=== PATIENT | female | born 1985 | race American Indian/Alaskan Native ===

== ENCOUNTER 2021-01-18 12:49 | Outpatient (REF) | payer OTHER, SELFPAY ==
--- NOTE | 2021-01-18 16:26 | MHC.AU.CER ---
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 Cerumen softening drops used. Unable to remove cerumen Other: Partially removed, could not complete. Left Ear: Unusual Findings: Narrow Canal(s), Deeply Impacted Cerumen Prior to Removal: Significant Cerumen Present, Complete Occlusion Outcome of Procedure: Encountered difficulty removing cerumen. Cerumen softening drops used. Unable to remove cerumen Other: Partially removed, could not complete. Recommendations: Patient was seen for an audiological evaluation. Otoscopy revealed completely occluding cerumen bilaterally. Tympanometry indicated non-compliant middle-ear systems (Type B), suggestive of complete occlusion. Could not complete removal due to deep, dry wax. Advised patient to use wax softening drops for the next week then return to complete wax removal and conduct a hearing evaluation. Diagnosis Code(s): Primary Diagnosis: H61.23 Impacted Cerumen, Bilateral Services Performed: Tympanometry (CPT 12546) Signature: Provider: Chidi Brower, CHESTER-A
== END 2021-01-18 12:50 | disposition home or self-care (01) ==
LOC: HO.SH 12:49
PROVIDERS: Visit Provider Internal Medicine
DX: H61.23 Impacted cerumen, bilateral (principal)
CPT/HCPCS: 92567

== ENCOUNTER 2021-02-01 13:52 | Outpatient (REF) | payer OTHER, SELFPAY ==
--- NOTE | 2021-02-01 16:45 | MHC.AU.CER ---
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 Cerumen softening drops used. Very little to no cerumen was able to be removed. Irritation/Redness Left Ear: Unusual Findings: Narrow Canal(s), Deeply Impacted Cerumen Prior to Removal: Significant Cerumen Present Outcome of Procedure: Encountered difficulty removing cerumen. Cerumen softening drops used. Very little to no cerumen was able to be removed. Irritation/Redness Summary/Recommendations: Patient was seen on 01/18/21, at which time cerumen removal couldn't be completed and it was recommended that she use earwax removal drops at home then return. She notes that she has been hearing better since using the drops. Otoscopy reveal occluding cerumen bilaterally, located deep in the canal. Unable to fully remove today. From here, recommend patient get a referral to ENT to complete cerumen removal. Recommended that she continue to use earwax removal drops in the meantime. Welcomed to return for an audiological evaluation of hearing concerns persist following cerumen removal. Diagnosis Code(s): Primary Diagnosis: H61.23 Impacted Cerumen, Bilateral Signature: Provider: Chidi Brower, CCC-A
== END 2021-02-01 13:53 | disposition home or self-care (01) ==
LOC: HO.SH 13:52
PROVIDERS: Visit Provider Internal Medicine
DX: Z13.89 Encounter for screening for other disorder (principal)

== ENCOUNTER 2021-05-26 15:54 | Outpatient (REF) | payer OTHER, SELFPAY ==
--- NOTE | ~2021-05-26 | XR_ITS ---
EXAMINATION: XR THORACIC SPINE CLINICAL INFORMATION: Pain in thoracic spine. COMPARISON: None TECHNIQUE: 2 views of the thoracic spine were obtained. FINDINGS: There is no fracture or bone destruction seen and the vertebral alignment is normal. There is no disc space narrowing. There is no abnormality of the paraspinal soft tissues. XR/XR thoracic spine 3V IMPRESSION: Unremarkable examination.
== END 2021-05-26 15:55 | disposition home or self-care (01) ==
LOC: HO.XRAY 15:54
PROVIDERS: PCP Internal Medicine; Visit Provider Nurse Practitioner Acute Care
DX: M54.6 Pain in thoracic spine (principal)
CPT/HCPCS: 72072

== ENCOUNTER 2022-07-10 13:48 | Outpatient (RCR) | payer OTHER, SELFPAY ==
--- NOTE | 2022-08-03 13:07 | MHC.OT.EP ---
[address] [phone] Occupational Therapy Plan of Care Patient Name: Gaby Lopez Date of Evaluation: 07/10/22 Diagnosis: Right wrist pain Right hand pain Pain Location: 4-8 right hand to shoulder achy Pain Score: 8 Pain Scale Used: Numeric (0 - 10) Aggravating Factors: Gripping with right hand Alleviating Factors: Night wrist splint Assessment: Pt is a 37 yo female with a recent worsening of right hand and wrist pain radiating to right lateral neck Pt presents with S+S mild CTS , D3 and 4 mild trigger finger. Pt will benefit from OT for CTS and trigger finger Frequency and Duration: The patient will be seen Short Term Goals: Pt will demo indep with HEP for ROM, nerve glides and tendon glide ex Demo awareness of ergonomics for work and home tasks with adapted techniques as needed. Pt with report decreased frequency of right hand trigger fingers with use of night trigger finger orthosis Pt will report right UE pain dec to < 5/10 with protection techniques with daily activities Assisted Goals: Indep self management for CTS and trigger finger Indep with HEP and ergonomic recommendations Dec frequency of RUE pain to occasional Dec frequency of right trigger finger to rare Treatment Plan: Therapeutic Exercise Therapeutic Activity Home Exercise Program Splinting Patient Education ADL Training Ultrasound Cold Packs Electronically Signed By: Lissa Akers OT CHT CLT Please Sign and return to therapist. Thank you once again for your referral.
--- NOTE | 2022-08-23 10:35 | MHC.OT.DC ---
[address] [phone] F: [phone] Occupational Therapy Discharge Note Patient Name: Gaby Lopez Provider: Diane Ferrell Diagnosis: Right wrist pain Right hand pain Date of Surgery: Date of Evaluation: 07/10/22 Date of Discharge: 08/23/22 Treatments to Date: 1 Cancellations to Date: 3 No Shows to Date: 2 Discharge Status: Visit Non-compliance Discharge Summary: See eval for detailsOT eval completed. See eval for details Began instruction on sx management with CP and joint protection Instructed to avoid straightening her hair and using string mop. Recommended spin mop Pt ed and practice with CP and tendon and nerve glides Printed HEP issued Fabricated a trigger finger splint for night wear. Electronically Signed By: Lissa Akers OT CHT CLT Reviewed/agree with student documentation: Therapist: Please Sign and return to therapist, thank you for your referral.
== END 2022-08-23 10:35 | disposition home or self-care (01) ==
LOC: HO.OT 13:48
PROVIDERS: PCP Internal Medicine; Visit Provider Internal Medicine
DX: M79.641 Pain in right hand (principal)
CPT/HCPCS: 97165; 97760

== ENCOUNTER 2023-05-17 14:23 | Outpatient (AMB) | payer OTHER, SELFPAY ==
[2023-05-17 14:28] VITALS: BP 132/80; BMI 26.3
--- NOTE | 2023-05-17 14:28 | A.OFFPC_ITS ---
Vital Signs 05/17/23 14:28 Height 5 ft 7 in Weight 168 lb BMI 26.3 BP 132/80 Blood Pressure Location Lt brachial Position Sitting Intake Visit Reasons: Rt sided flank pain Order Entry Specialist Required: No Accompanied by: Self / Same As Patient Allergies No Known Allergies Allergy (Verified 05/17/23 14:38) Medication List - Last Reconciled 05/17/23 by Diane Ferrell MD ibuprofen 800 mg PO Q6H PRN Tobacco use date assessed: 05/17/23 HPI HPI Comments History of Present Illness Details This is a 37-year-old that complains right chest wall pain and back pain with tenderness that started 3 days ago. The pain radiates from the front to the back and involves the shoulder now with limited right shoulder elevation and abduction. Ibuprofen mildly relieved the pain. I will add methocarbamol as a muscle relaxer for this matter. No chest pain or shortness of breath. She said that 3 days ago she lift 2 boxes of water bottles. [facility] Medical History (Updated 05/17/23 @ 16:53 by Diane Ferrell MD) Migraines Hearing loss, right Surgical History History of section History of tubal ligation Family History Father Hypertension Diabetes Heart disease Mother Hypertension Diabetes Asthma Maternal Grandfather Heart disease Maternal Aunt Cervical cancer Breast cancer Social History Housing: House Alcohol intake: current Alcohol intake frequency: holidays/special occasions only Patient Tobacco Use Status: Never used Tobacco e-Cigarette/Vaping Use: Never Used Second Hand Smoke Exposure: No service: No Current occupational status: employed Current occupational exposures/hazards: No Cognitive needs: No Hearing needs: No Vision needs: No Questionnaire Thrive Questionnaire Date Thrive assessed: 06/08/22 SONYA-7 AMB Questionnaire SONYA-7 Date SONYA - 7 assessed: 06/08/22 Source: Developed by Drs. Albin Jimenez, Milena Hunter, Justin Terry and colleagues, with an educational loida from [employer] Review of Systems Const All systems reviewed & are unremarkable except as noted in HPI and below Eyes Reports no additional complaints, Denies change in vision and Denies other visual disturbances Card Denies chest pain at rest, Denies chest pain with activity, Denies edema, Denies irregular heart rhythm, Denies claudication, Denies dyspnea, Denies dyspnea on exertion, Denies orthopnea, Denies paroxysmal nocturnal dyspnea and Denies slow heart rate Resp Denies cough, Denies dyspnea and Denies dyspnea on exertion GI Denies abdominal pain, Denies change in bowel habits, Denies excessive flatus, Denies nausea and Denies vomiting Denies urinary incontinence, Denies urinary hesitancy and Denies urinary urgency Musc Denies abnormal gait, Denies atrophy, Denies deformity and Denies limited range of motion Skin/Breast Denies bleeding lesions, Denies changing lesions and Denies rash Neuro Denies abnormal gait, Denies behavioral changes and Denies lack of coordination Psych Denies behavioral changes Physical exam (Primary Care) Vital Signs: Last Vital Signs BP 132/80 05/17/23 14:28 BMI result Body Mass Index 26.3 Tobacco/Smoking Status: Tobacco use Status Tobacco use date assessed 05/17/23 05/17/23 14:34 Patient Tobacco Use Status Never used Tobacco 05/17/23 14:34 e-Cigarette/Vaping Use Never Used 05/17/23 14:34 Thrive Assessment: Date of Thrive Assessment Date Thrive assessed 06/08/22 05/17/23 14:34 [facility] Head: Yes normal to inspection, Yes normocephalic and Yes atraumatic Ears: external ears normal Eyes General: appearance normal, both eyes and all related structures Eyelids: Yes eyelids normal Conjunctivae: conjunctivae normal Neck Neck: Yes normal visual inspection and Yes supple Resp Effort & Inspection: normal respiratory effort Auscultation: clear to auscultation bilaterally Cardio Jugular venous distension: no JVD Rate: regular rate Rhythm: regular rhythm Heart sounds: S1 normal heart sound present and S2 normal heart sound present Extrem Other: Right shoulder tenderness, right trapezius tenderness, right chest wall tenderness Assessment and Plan Assessment & Plan (1) Myalgia: Code(s): M79.10 - Myalgia, unspecified site Plan: Start methocarbamol. Continue ibuprofen as needed. Medications: New methocarbamol 750 mg PO TID 7 days 21 tabs 0RF Changed From ibuprofen 800 mg PO Q6H PRN 20 tabs 0RF pain M54.6 - Pain in thoracic spine To ibuprofen 800 mg PO Q8H 30 days PRN 90 tabs 0RF pain M54.6 - Pain in thoracic spine Coding Level of Care Code Est Pt Level 3 (25477) Diagnoses Myalgia M79.10 Time Spent (min) 19
== END 2023-05-17 14:47 | disposition home or self-care (01) ==
PROVIDERS: PCP Internal Medicine; Visit Provider Internal Medicine
DX: M79.10 Myalgia, unspecified site (principal); G43.909 Migraine, unspecified, not intractable, without status migrainosus
CPT/HCPCS: 99213

== ENCOUNTER 2023-05-19 09:34 | Emergency (ER) | payer OTHER, SELFPAY ==
--- NOTE | ~2023-05-19 | XR_ITS ---
EXAMINATION: XR RIBS, RIGHT CLINICAL INFORMATION: Right rib pain COMPARISON: Previous chest x-ray March 27 TECHNIQUE: 3 views of the right ribs were obtained. FINDINGS: Lungs are clear. No consolidation, pneumothorax, or pleural effusion. The cardiomediastinal silhouette and pulmonary vasculature are normal. Osseous structures are unremarkable. Ribs are intact. No fractures are identified. XR/XR ribs RT min 3V w CXR1V IMPRESSION: Unremarkable examination.
--- NOTE | ~2023-05-19 | CT_ITS ---
EXAMINATION: CT ANGIOGRAM OF THE CHEST WITH AND WITHOUT CONTRAST (CT PULMONARY ANGIOGRAM FOR PE) CLINICAL INFORMATION: Reason for Exam elevated d-dimer COMPARISON: None available. TECHNIQUE: Prior to contrast administration, noncontrast localization images were obtained. Subsequently, multidetector volumetric imaging was performed from the thoracic inlet to below the diaphragms following the administration of 80 mL Omnipaque 350 intravenous contrast. No contrast reaction reported Sagittal, coronal, and MIP oblique sagittal reformatted images were obtained on the CT workstation, uploaded to PACS, and reviewed. This CT examination was performed using dose optimization techniques as appropriate, variously including the following: *Automated exposure control *Adjustment of mA and/or kV according to patient size (this includes techniques or standardized protocols for targeted exams where dose is matched to indication/reason for exam; i.e. extremities or head) *Use of iterative reconstruction technique Total exam dose-length product 306 mGy-cm FINDINGS: QUALITY OF STUDY/CONTRAST BOLUS: Satisfactory. PULMONARY ARTERIES: No pulmonary emboli. THORACIC AORTA: No aneurysm. LUNG/PLEURA: Trace right pleural effusion with subjacent atelectasis. 2 mm pleural-based nodular focus along the lateral aspect of the right middle lobe (series 7, image 262). Central airways are patent. No pneumothorax. MEDIASTINUM: Heart is not enlarged. No pericardial effusion. No coronary calcification. No enlarged lymph nodes per size criteria. Visualized portions of the thyroid are unremarkable. No evidence of septal bowing or right heart strain. CHEST WALL/AXILLA: No axillary or internal mammary lymphadenopathy. OSSEOUS STRUCTURES: No acute or suspicious osseous abnormality. UPPER ABDOMEN: Slightly decreased hepatic attenuation suggesting hepatic steatosis. No reflux of contrast into the hepatic veins to suggest elevated right heart pressures. CT/CT angio chest PE protocol IMPRESSION: 1. No pulmonary emboli. 2. Trace right pleural effusion with subjacent atelectasis. 3. 2 mm pleural-based nodular focus along the lateral aspect of the right middle lobe. Follow-up as per Fleischner criteria. 4. Slightly decreased hepatic attenuation suggesting hepatic steatosis. According to the UPDATED 2017 Fleischner Society recommendations, the advised follow-up imaging for solid nodules < 6 mm is: LOW RISK PATIENT: No routine follow-up.
[2023-05-19 09:40] VITALS: BP 141/89; PULSE 75; RESP 16; TEMP 36.4; O2SAT 98; BMI 26.4
--- NOTE | 2023-05-19 10:15 | ED_ITS ---
HPI - General Adult General Chief complaint: Back Pain/Injury Stated complaint: r sided abd and back pain into shoulder Time Seen by Provider: 05/19/23 10:08 Source: patient, RN notes reviewed and old records reviewed Mode of arrival: ambulatory History of Present Illness HPI narrative: 37-year-old female with a past medical history of migraines, presenting to the ED complaining of right-sided upper back/scapular pain radiating to right anterior chest/ribs x a few days. Admits pain worse with movement and palpation, with some chest discomfort and chronic SOB. Denies recent injury/trauma or fall/heavy lifting. Has been taking ibuprofen, and saw her PCP on 05/17/2023 prescribed Methocarbamol without relief. Denies rash, nausea/vomiting, abdominal pain, recent travel, hematuria, exacerbation with food intake. Onset (ago): day(s) Related Data Previous Rx's Medication Instructions Recorded ibuprofen 800 mg tablet 800 mg PO Q8H PRN pain 30 days #90 05/17/23 tabs methocarbamol 750 mg tablet 750 mg PO TID 7 days #21 tabs 05/17/23 lidocaine 5 % topical patch 1 patch topical DAILY PRN pain #30 05/19/23 (Lidoderm) ea Allergies Allergy/AdvReac Type Severity Reaction Status Date / Time No Known Allergies Allergy Verified 05/19/23 09:43 Review of Systems 2 Review of Systems: Constitutional: No Fever, No Chills ENT/Mouth: No Ear Pain, No Nasal Congestion, No sore throat, No Rhinorrhea, No Swallowing Difficulty Cardiovascular: + Chest Pain, +chronic SOB Respiratory: No Cough, No Sputum Gastrointestinal: No Nausea, No Vomiting, No Diarrhea, No Abdominal pain Genitourinary: No Dysuria, No Urinary Frequency, No Hematuria, No Urinary Incontinence/retention, No Flank Pain Musculoskeletal: + joint pain, + Myalgias, No Joint Swelling Skin: No Skin Lesions, No rash Neuro: No Weakness, No Numbness, No Paresthesias Yes all other systems are reviewed and are negative Constitutional: Constitutional: Reports as per [facility] Past Medical History Attestation statement: The following information was validated with the patient. Source: old records reviewed Medical History Migraines Hearing loss, right Surgical History History of section History of tubal ligation Family History Family History Father Hypertension Diabetes Heart disease Mother Hypertension Diabetes Asthma Maternal Grandfather Heart disease Maternal Aunt Cervical cancer Breast cancer Social History Social History Housing: House Alcohol intake: current Alcohol intake frequency: holidays/special occasions only Patient Tobacco Use Status: Never used Tobacco e-Cigarette/Vaping Use: Never Used Second Hand Smoke Exposure: No Advance Directives: No Advance Directives Information Provided: No service: No Current occupational status: employed Current occupational exposures/hazards: No Cognitive needs: No Hearing needs: No Vision needs: No Physical Exam ED Vital Signs: Vital Signs - 24 hr 05/19/23 09:40 Temperature 97.5 F Pulse Rate 75 Respiratory Rate 16 Blood Pressure 141/89 H Pulse Oximetry 98 Oxygen Delivery Method Room Air BMI result Body Mass Index 26.4 Const General: cooperative, healthy appearing and no acute distress Orientation/consciousness: patient oriented x3 Limitations: no limitations HENMT Head: Yes normal to inspection and Yes atraumatic Ears: hearing grossly normal bilaterally General nose exam: Normal external nose present Face and sinus: Yes normal facial exam Eyes General: appearance normal, both eyes and all related structures EOM: EOMs intact bilaterally Neck Neck: Yes normal visual inspection and Yes no meningeal signs Chest Other: + right-sided posterior lateral and anterior chest wall reproducible tenderness. No erythema, rash, ecchymosis or flail chest. No crepitus Chest palpation & inspection: normal inspection of the chest, no crepitus and tenderness Resp Effort & Inspection: normal respiratory effort and no respiratory distress Auscultation: clear to auscultation bilaterally Cardio Rate: regular rate Heart sounds: S1 normal heart sound present and S2 normal heart sound present GI Inspection: Yes normal to inspection Palpation (GI): Soft to palpation, nontender, no guarding and not rigid General: Yes no CVA tenderness Back/Spine/Pelvis Other: No midline cervical/thoracic/lumbar spinous tenderness/step-off or deformity Back: no CVA tenderness Skin Rashes: no rashes Wounds: no wounds Neuro General: patient oriented x3, tone normal and no meningeal signs Cranial nerves: Yes CN's II-XII intact bilaterally Gait exam (Neuro): Normal gait present Extrem Other: Mild right shoulder tenderness. Neurovascular intact distally General: Yes normal to inspection Course Course Course Narrative: -1115--no leukocytosis. D-dimer elevated to 748 > will obtain CTA to rule out PE -UA with trace blood/RBCs, but contaminated. -labs otherwise reassuring. Troponin negative XR ribs RT min 3V w CXR1V IMPRESSION: Unremarkable examination. CT angio chest PE protocol IMPRESSION: 1. No pulmonary emboli. 2. Trace right pleural effusion with subjacent atelectasis. 3. 2 mm pleural-based nodular focus along the lateral aspect of the right middle lobe. Follow-up as per Fleischner criteria. 4. Slightly decreased hepatic attenuation suggesting hepatic steatosis. According to the UPDATED 2017 Fleischner Society recommendations, the advised follow-up imaging for solid nodules < 6 mm is: LOW RISK PATIENT: No routine follow-up. 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 Discussed worrisome signs and symptoms and strict return precautions, and when to return to the emergency department. They verbalized understanding and feel safe for discharge at this time. > patient reports symptomatic improvement after medications given in the ED Medications Administered Discontinued Medications Generic Name Dose Route Start Last Admin Trade Name Dickq PRN Reason Stop Dose Admin Cyclobenzaprine HCl 5 mg 05/19/23 10:24 05/19/23 10:50 Cyclobenzaprine Hcl 5 Mg Tablet PO 05/19/23 10:25 5 mg ONCE ONE Administration Iohexol 85 ml 05/19/23 11:31 05/19/23 11:31 Iohexol 350 Mg/Ml 100 Ml Infus..Btl IV 05/19/23 11:32 85 ml ONCE ONE Administration Lidocaine 1 patch 05/19/23 10:23 05/19/23 10:49 Lidocaine 4 % Patch Adh..Patch TRANSDERMA 05/19/23 10:24 1 patch ONCE ONE Administration Protocol Medical Decision Making Medical Decision Making [facility] Narrative: 37-year-old female with a past medical history of migraines, presenting to the ED complaining of right-sided upper back/scapular pain radiating to right anterior chest/ribs x a few days. On exam vital signs stable, NAD, nontoxic appearing, physical exam as above with noted reproducible chest wall tenderness. Abdomen is soft and nontender. Lungs CTA. Concern for costochondritis vs MSK pain/strain vs pulmonary embolism or pneumonia. ?Renal stones/pyelo although of lower suspicion. Lower suspicion for cholecystitis/lithiasis or pancreatitis with abdomen being soft and nontender. Symptoms atypical for ACS Plan: EKG, labs, CXR/rib x-ray, pain control, re-evaluate Please refer to course for remaining clinical decision making, interpretation of labs/imaging results, and discussions with consultants and/or family members. Differential Diagnosis Differential Diagnoses: The differential diagnosis associated with the presentation includes As above Admission/Observation Consideration of admission/observation: Escalation of care including admission/observation considered Lab Data MDM Lab Attestation statement: I reviewed the patient's lab results. 05/19/23 10:44 05/19/23 10:44 Labs: Lab Results 05/19/23 Range/Units 10:44 WBC 10.8 (4.8-10.8) X10*3/uL RBC 3.98 L (4.20-5.50) X10*6/uL Hgb 12.9 (12.0-16.0) g/dl Hct 37.4 (37.0-47.0) % MCV 94.0 (80.0-98.0) fL MCH 32.4 (27.0-33.0) pg MCHC 34.5 (31.0-35.0) g/dl RDW 12.1 (11.0-16.0) % Plt Count 297 (160-400) X10*3/uL MPV 9.2 L (9.4-12.3) fL Immature Gran % (Auto) 0.4 (0.0-0.4) % Neut % (Auto) 77.6 H (45-73) % Lymph % (Auto) 12.5 L (20-40) % [place] % (Auto) 8.7 (2-11) % Eos % (Auto) 0.6 (0-4) % Baso % (Auto) 0.2 (0-2) % Lymph # (Auto) 1.4 (1.2-4.9) X10*3/uL [place] # (Auto) 0.9 (0.1-1.2) X10*3/uL Eos # (Auto) 0.1 (0.0-0.4) X10*3/uL Baso # (Auto) 0.0 (0.0-0.2) X10*3/uL Abs Immat Gran (auto) 0.04 H (0.00-0.03) X10*3/uL Absolute Neuts (auto) 8.4 H (2.0-8.3) x10*3/uL Absolute Nucleated RBC 0.000 (0.0-0.012) X10*3/uL Nucleated RBC % (auto) 0.0 (0.0-0.2) /100WBC D-Dimer High Sensitivty 748 NG/ML Sodium 139 (135-145) mmol/L Potassium 3.6 (3.3-5.1) mmol/L Chloride 103 (96-108) mmol/L Carbon Dioxide 26 (22-29) mmol/L Anion Gap 14 (12-20) BUN 10 (9-16) mg/dL Creatinine 0.64 (0.5-1.4) mg/dL Estim Creat Clear Calc 125.7 Estimated GFR > 60 Random Glucose 87 (60-115) mg/dL Calcium 9.6 (8.4-10.2) mg/dL Total Bilirubin 0.5 (0.0-1.0) mg/dL Direct Bilirubin 0.3 (0.0-0.5) mg/dL AST 17 (5-31) U/L ALT 21 (0-31) U/L Alkaline Phosphatase 87 (39-117) U/L Troponin I High Sens < 2.7 (<3.5-17.0) ng/L Total Protein 8.6 H (6.5-8.0) g/dL Albumin 4.0 (3.5-5.0) g/dL Lipase 12 (8-78) U/L Beta HCG, Quant < 2 mIU/mL Urine Color Yellow Urine Appearance Cloudy Urine pH 6.0 (5.0-9.0) Ur Specific [place] 1.025 (1.005-1.025) Urine Protein Trace (Neg-Trace) mg/dL Urine Glucose (UA) Negative (Negative) mg/dL Urine Ketones Negative (Negative) mg/dL Urine Blood Trace H (Negative) Urine Nitrite Negative (Negative) Ur Leukocyte Esterase Negative (Negative) Urine RBC 3-5 H (0-2) /HPF Urine WBC 0-5 (0-5) /HPF Ur Squamous Epith Cells 11-20 (0-2) /HPF Urine Bacteria 3+ (None Seen) Hyaline Casts 0-2 (0-2) /LPF Independent Interpretation I performed an independent interpretation of an: Plain X-Ray and Ultrasound Radiology Impression Discussion of test interpretation with radiology: I have reviewed the radiologist's reading. External Record Review External record reviewed: Inpatient record, Office record, Outpatient record, Prior outpatient labs, Prior outpatient radiology, Primary care record and Outside ED record Tests considered The following testing was considered but not selected: As above Prescription Management I considered prescription management with: Pain Medication Discharge Plan Discharge Clinical Impression: Costochondritis, Pulmonary nodule Patient Disposition: Home, Self-Care Instructions: Costochondritis (ED), Pulmonary Nodules (ED) Additional Instructions: Your blood work is reassuring. The CT scan of her chest does not show a blood clot. You do have a trace amount of fluid in your right lung as well as a small nodule. Please follow-up with her primary care doctor in regards to this Continue previously prescribed medications and ibuprofen, in addition use lidocaine patches and Tylenol. If symptoms persist or worsen return to the emergency department Tu an?lisis de rick es tranquilizador. La tomograf?a computarizada de slaughter t?rax no muestra nikita?n co?gulo de rick. Tiene smiley mari?a cantidad de l?quido en el pulm?n derecho, as? stacie un mari?o n?dulo. Por favor nickie un seguimiento con slaughter m?dico de atenci?n primaria con respecto a esto. Contin?e con los medicamentos recetados previamente y con ibuprofeno, adem?s use parches de lidoca?na y Tylenol. Si los s?ntomas persisten o empeoran, regrese al departamento de emergencias. Prescriptions: New lidocaine [Lidoderm] 5 % adhesive patch,medicated 1 patch topical DAILY MDD remove after 12 hours PRN (Reason: pain) Qty: 30 0RF Rx Instructions: leave on most painful area for up to 12 hrs No Action ibuprofen 800 mg tablet 800 mg PO Q8H PRN (Reason: pain) 30 Days Qty: 90 0RF methocarbamol 750 mg tablet 750 mg PO TID 7 Days Qty: 21 0RF Referrals: Diane Bridges MD [Primary Care Provider] - 3 days Interventions: ED Discharge Assessment Last Done: 05/19/23 13:18 Discharge Date/Time: 05/19/23 13:18 Print Language: Persian
[2023-05-19] MEDS: Lidocaine 4 % Patch ADH..PATCH 1 PATCH TRANSDERMA (10:49)
[2023-05-19 10:50] LABS: MANUAL DIFF FLAG NO
[2023-05-19] MEDS: Cyclobenzaprine HCl 5 MG TABLET PO (10:50)
[2023-05-19 10:53] LABS: Appearance Urine Cloudy; Basophils Percent Auto 0.2 % (0-2); Color Urine Yellow; Eosinophils Absolute Auto 0.1 X10*3/uL (0.0-0.4); Eosinophils Percent Auto 0.6 % (0-4); Glucose Urine UA Negative (Negative); Hematocrit 37.4 % (37.0-47.0); Hemoglobin 12.9 g/dl (12.0-16.0); Imm Gran Abs Auto 0.04 X10*3/uL (0.00-0.03); Imm Gran Pct Auto 0.4 % (0.0-0.4); Leukocyte Esterase Urine Negative (Negative); Lymphocytes Absolute Auto 1.4 X10*3/uL (1.2-4.9); Lymphocytes Percent Auto 12.5 % (20-40); Mean Corpuscular HGB Conc 34.5 g/dl (31.0-35.0); Mean Corpuscular Hemoglobin 32.4 pg (27.0-33.0); Mean Platelet Volume 9.2 fL (9.4-12.3); Monocytes Absolute Auto 0.9 X10*3/uL (0.1-1.2); Monocytes Percent Auto 8.7 % (2-11); Neutrophils Absolute Auto 8.4 x10*3/uL (2.0-8.3); Neutrophils Percent Auto 77.6 % (45-73); Nitrite Urine Negative (Negative); Platelet Count 297 X10*3/uL (160-400); Red Blood Count 3.98 X10*6/uL (4.20-5.50); Red Cell Distribution Width 12.1 % (11.0-16.0); Specific Gravity - Urine 1.025 (1.005-1.025); UMIC TRIGGER UACC YES; Urine Blood Trace (Negative); Urine Ketones Negative (Negative); Urine Protein Trace mg/dL (Neg-Trace); White Blood Count 10.8 X10*3/uL (4.8-10.8)
[2023-05-19 10:58] LABS: Bacteria Urine 3+ (None Seen); Hyaline Casts Urine 0-2 /LPF (0-2); WBC Urine 0-5 /HPF (0-5)
[2023-05-19 11:00] LABS: D Dimer High Sensitivity 748 NG/ML
[2023-05-19 11:08] LABS: Alanine Aminotransferase 21 U/L (0-31); Alkaline Phosphatase 87 U/L (39-117); Anion Gap 14 (12-20); Aspartate Amino Transferase 17 U/L (5-31); Bilirubin Direct 0.3 mg/dL (0.0-0.5); Bilirubin Total 0.5 mg/dL (0.0-1.0); Blood Urea Nitrogen 10 mg/dL (9-16); Calcium 9.6 mg/dL (8.4-10.2); Carbon Dioxide 26 mmol/L (22-29); Chloride 103 mmol/L (96-108); Creatinine Clr Calc Pharmacy 125.7; Estimated Glomerular Filt Rate > 60; Glucose Random 87 mg/dL (60-115); Lipase 12 U/L (8-78); Potassium 3.6 mmol/L (3.3-5.1); Sodium 139 mmol/L (135-145); Total Protein 8.6 g/dL (6.5-8.0)
[2023-05-19 11:28] LABS: Troponin-I High Sensitivity < 2.7 ng/L (<3.5-17.0)
[2023-05-19] MEDS: iohexoL 350 MG/ML 100 ML INFUS..BTL 85 ML IV (11:31)
[2023-05-19 12:12] LABS: HCG Quantitative < 2 mIU/mL
== END 2023-05-19 13:18 | disposition home or self-care (01) ==
PROVIDERS: Physician Assistant; Emergency Provider Student in an Organized Health Care Education/Training Program; PCP Internal Medicine
DX: M94.0 Chondrocostal junction syndrome [Tietze] (principal); R91.1 Solitary pulmonary nodule; J90 Pleural effusion, not elsewhere classified; Z79.899 Other long term (current) drug therapy
CPT/HCPCS: 36415; 71101; 71275; 80048; 80076; 81001; 83690; 84484; 84702; 85025; 85379; 99283; 99284; Q9967

== ENCOUNTER 2023-05-22 11:20 | Outpatient (AMB) | payer OTHER, SELFPAY ==
[2023-05-22 11:25] VITALS: BP 126/70; PULSE 89; O2SAT 99; BMI 25.8
--- NOTE | 2023-05-22 11:25 | A.OFFVIS_ITS ---
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 The patient is a 37 year woman who is healthy apparently she was in usual state health until last week when she started developing pleuritic chest pain on the right side. Initially she felt a nagging sensation on the right hemithorax. Worsened with breathing coughing. Although she took some ibuprofen was able to feel little better and she went back to work. Then the next day she noticed the pain was a little bit worse. Therefore, she was seen by her primary care doctor and provided some care. Ultimately her symptoms worsen to the point that she could not barely breathe then because the pleuritic intensity of the pain. [place] like a sharp stabbing pain primarily in the the right lateral area but also likely radiating to the shoulder area. At that point the patient could not tolerate the symptoms and longer decided to go to the ER. There she did undergo a CTA. I did personally reviewed the CT scan the patient. She does have a small right-sided pleural effusion suggesting some component of pleurisy. But in addition to that adjacent to the pleural effusion that appears to be an area of airspace disease which could be compressive atelectasis or pneumonia. The patient also states she has been coughing more she has also had some chills and has not been feeling well. Her blood work did also demonstrate a left shift with significant immature granulocytes suggesting infectious process. At this point based on the findings likely has a small non complicated parapneumonic effusion which is very pruritic in nature. Therefore will go ahead and start the patient on antibiotics. She can take Motrin for pain. If the patient is no better she can have a repeat x-ray to make sure that the fusion is not getting worse. Lyubov hairston will repeat the x-ray need around. Also to note the patient does have a small subcentimeter pulmonary nodule. The nodules not concerning with the patient is concerned about it. She will need to have a repeat CT scan in a year's time to make sure that the nodular density does not evolve into anything. The patient was started the antibiotics if she has no better she will call the office otherwise will follow-up in 6-8 weeks. [facility] Medical History (Updated 05/22/23 @ 12:43 by Handy Johnson MD) Pneumonia Migraines Hearing loss, right Surgical History History of section History of tubal ligation Family History Father Hypertension Diabetes Heart disease Mother Hypertension Diabetes Asthma Maternal Grandfather Heart disease Maternal Aunt Cervical cancer Breast cancer Social History Housing: House Alcohol intake: current Alcohol intake frequency: holidays/special occasions only Patient Tobacco Use Status: Never used Tobacco e-Cigarette/Vaping Use: Never Used Second Hand Smoke Exposure: No service: No Current occupational status: employed Current occupational exposures/hazards: No Cognitive needs: No Hearing needs: No Vision needs: No Review of Systems Const Reports chills Eyes Reports no additional complaints, Denies change in vision and Denies other visual disturbances ENT Reports otalgia Card Reports chest pain at rest, Reports chest pain with activity, Denies edema, Denies irregular heart rhythm, Denies claudication, Denies dyspnea, Denies dyspnea on exertion, Denies orthopnea, Denies paroxysmal nocturnal dyspnea and Denies slow heart rate Resp Reports cough, Reports pain on inspiration, Reports pain with cough, Denies dyspnea, Denies dyspnea on exertion and Denies wheezing GI Denies abdominal pain, Denies change in bowel habits, Denies excessive flatus, Denies nausea and Denies vomiting Denies urinary incontinence, Denies urinary hesitancy and Denies urinary urgency Musc Denies abnormal gait, Denies atrophy, Denies deformity and Denies limited range of motion Skin/Breast Denies bleeding lesions, Denies changing lesions and Denies rash Neuro Denies abnormal gait, Denies behavioral changes and Denies lack of coordination Psych Denies behavioral changes Fredy/Lymph Denies lymphadenopathy Aller/Immun Denies wheezing Physical Exam Vital Signs: Last Vital Signs Pulse 89 05/22/23 11:25 BP 126/70 05/22/23 11:25 Pulse Ox 99 05/22/23 11:25 Oxygen Delivery Method Room Air 05/22/23 11:25 BMI result Body Mass Index 25.8 Const General: comfortable HEENT Head: Yes normocephalic Neck Neck: Yes supple Chest Chest palpation & inspection: normal inspection of the chest Resp Effort & Inspection: normal respiratory effort Auscultation: diminished lung sounds Cardio Rate: tachycardic Rhythm: regular rhythm Heart sounds: S1 normal heart sound present and S2 normal heart sound present GI Palpation (GI): Soft to palpation Skin General skin exam: no rashes or lesions noted Extrem General: Yes no clubbing, cyanosis or edema Assessment & Plan Assessment & Plan (1) Pleural effusion: Code(s): J90 - Pleural effusion, not elsewhere classified (2) Pneumonia: Code(s): J18.9 - Pneumonia, unspecified organism Qualifiers: Pneumonia type: due to unspecified organism Laterality: right Lung location: lower lobe of lung Qualified Code(s): J18.9 - Pneumonia, unspecified organism (3) Pulmonary nodule: Code(s): R91.1 - Solitary pulmonary nodule Plan The patient is presenting with chills cough and pleuritic discomfort. CT scan d emonstrating small pleural effusion with evidence of airspace disease. Please refer to the picture. Will go ahead and treat her for a lower respiratory infection. She is taking Motrin for pain. Other etiologies that may present this fashion are connective tissue conditions. Although, she does not have any other stigmata of connective tissue disease. Therefore hold off on any additional blood work. If the patient does not respond to therapy then will do blood work assessing immune status and also inflammatory conditions. Recommendations: Start Augmentin Continue ibuprofen As needed for pain Repeat chest x-ray this week if feeling like she is getting worse otherwise she can wait till next week Consider blood work if the patient is not improving or if the x-ray is not improving to assess for inflammatory conditions and to assess her immunity Follow-up in 6-8 weeks or sooner if she is developing any worsening symptoms Orders: Orders XR chest 2V Today J90 - Pleural effusion, not elsewhere classified Medications: New amoxicillin-pot clavulanate 875-125 mg 1 tab PO BID 10 days 20 tabs 0RF Coding Level of Care Code New Pt Level 4 (06580) Diagnoses Pleural effusion J90 Pneumonia of right lower lobe due to infectious organism J18.9 Pneumonia type: due to unspecified organism Laterality: right Lung location: lower lobe of lung Pulmonary nodule R91.1 Time Spent (min) 39
== END 2023-05-22 11:45 | disposition home or self-care (01) ==
PROVIDERS: PCP Internal Medicine; Visit Provider Hospitalist
DX: J90 Pleural effusion, not elsewhere classified (principal); J18.9 Pneumonia, unspecified organism; R91.1 Solitary pulmonary nodule
CPT/HCPCS: 99204

== ENCOUNTER → 2023-05-22 11:20 | Outpatient (BNVA) | payer OTHER, SELFPAY | PROVIDERS: PCP Internal Medicine; Visit Provider Hospitalist | DX: J90 Pleural effusion, not elsewhere classified (principal); J18.9 Pneumonia, unspecified organism; R91.1 Solitary pulmonary nodule | CPT/HCPCS: 99202 ==

== ENCOUNTER 2023-05-28 14:45 | Outpatient (REF) | payer OTHER, SELFPAY ==
--- NOTE | ~2023-05-28 | XR_ITS ---
EXAMINATION: XR CHEST CLINICAL INFORMATION: Pleural effusion, not elsewhere classified COMPARISON: CT angiography chest 05/19/2023, chest 03/24/2012 TECHNIQUE: 2 views of the chest were obtained. FINDINGS: There is increased opacity in the right lower lobe consistent with pneumonia. There are possibly small bilateral pleural effusions. No significant abnormality is noted involving the heart, mediastinum, bony thorax or soft tissues. XR/XR chest 2V IMPRESSION: Right lower lobe pneumonia. Possible small bilateral pleural effusions.
== END 2023-05-28 14:46 | disposition home or self-care (01) ==
LOC: HO.XRAY 14:45
PROVIDERS: PCP Internal Medicine; Visit Provider Hospitalist
DX: J90 Pleural effusion, not elsewhere classified (principal)
CPT/HCPCS: 71046

== ENCOUNTER 2023-05-30 14:57 | Outpatient (AMB) | payer OTHER, SELFPAY ==
[2023-05-30 15:07] VITALS: BP 120/80; BMI 26.3
--- NOTE | 2023-05-30 15:07 | A.OFFPC_ITS ---
Vital Signs 05/30/23 15:07 Height 5 ft 7 in Weight 168 lb BMI 26.3 BP 120/80 Blood Pressure Location Lt brachial Position Sitting Intake Visit Reasons: Ed follow up 05/19/23 fluid in lungs Intake Note: 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 Accompanied by: Self / Same As Patient Allergies No Known Allergies Allergy (Verified 05/30/23 15:27) Medication List - Last Reconciled 05/30/23 by Diane Ferrell MD amoxicillin-pot clavulanate 875-125 mg 1 tab PO BID 10 days ibuprofen 800 mg PO Q8H PRN 30 days lidocaine 5% (Lidoderm) 1 patch topical DAILY PRN MDD remove after 12 hours methocarbamol 750 mg PO TID 7 days Tobacco use date assessed: 05/17/23 HPI HPI Comments History of Present Illness Details This is a 37-year-old female with migraines and myalgia that comes today as a hospital discharge follow-up with discharge date 05/19/2023 due to having cough, fever and more shortness of breath along with pleuritic pain in the right side of the chest. CTA of chest was done ruling out pulmonary embolism but noticed right low pneumonia, small pleural effusion and small lung nodule. After that she saw pulmonology which start her on antibiotics and had a chest x-ray done while taking antibiotics that still shows pneumonia. She has a favorable and feeling slightly more improved. She will finish her antibiotics and will start Levaquin. Chest x-ray will be repeated after completing antibiotics. She has an appointment with pulmonology in July. Migraines has been stable with ibuprofen as needed. For myalgia she was prescribed methocarbamol. She was also diagnosed with costochondritis relieved by ibuprofen. She came to see me before going to ER due to right rib pain thinking that she lift few boxes of bottles of water. X-ray of the rib was done and was normal. Lungs were clear in that x-ray of ribs. [facility] Medical History (Updated 05/31/23 @ 08:04 by Diane Ferrell MD) Pneumonia Migraines Hearing loss, right Surgical History History of section History of tubal ligation Family History Father Hypertension Diabetes Heart disease Mother Hypertension Diabetes Asthma Maternal Grandfather Heart disease Maternal Aunt Cervical cancer Breast cancer Social History Housing: House Alcohol intake: current Alcohol intake frequency: holidays/special occasions only Patient Tobacco Use Status: Never used Tobacco e-Cigarette/Vaping Use: Never Used Second Hand Smoke Exposure: No service: No Current occupational status: employed Current occupational exposures/hazards: No Cognitive needs: No Hearing needs: No Vision needs: No Questionnaire Thrive Questionnaire Date Thrive assessed: 06/08/22 SONYA-7 AMB Questionnaire SONYA-7 Date SONYA - 7 assessed: 06/08/22 Source: Developed by Drs. Albin Jimenez, Milena Hunter, Justin Terry and colleagues, with an educational loida from [employer]. Review of Systems Const All systems reviewed & are unremarkable except as noted in HPI and below Eyes Reports no additional complaints, Denies change in vision and Denies other visual disturbances Card Denies chest pain at rest, Denies chest pain with activity, Denies edema, Denies irregular heart rhythm, Denies claudication, Denies dyspnea, Denies dyspnea on exertion, Denies orthopnea, Denies paroxysmal nocturnal dyspnea and Denies slow heart rate Resp Denies cough, Denies dyspnea and Denies dyspnea on exertion GI Denies abdominal pain, Denies change in bowel habits, Denies excessive flatus, Denies nausea and Denies vomiting Denies urinary incontinence, Denies urinary hesitancy and Denies urinary urgency Musc Denies atrophy, Denies deformity and Denies limited range of motion Physical exam (Primary Care) Vital Signs: Last Vital Signs BP 120/80 05/30/23 15:07 BMI result Body Mass Index 26.3 Tobacco/Smoking Status: Tobacco use Status Tobacco use date assessed 05/17/23 05/30/23 15:11 Patient Tobacco Use Status Never used Tobacco 05/30/23 15:11 e-Cigarette/Vaping Use Never Used 05/30/23 15:11 Thrive Assessment: Date of Thrive Assessment Date Thrive assessed 06/08/22 05/30/23 15:11 Eyes General: appearance normal, both eyes and all related structures Eyelids: Yes eyelids normal Conjunctivae: conjunctivae normal Neck Neck: Yes normal visual inspection and Yes supple Resp Effort & Inspection: normal respiratory effort Auscultation: clear to auscultation bilaterally Cardio Jugular venous distension: no JVD Rate: regular rate Rhythm: regular rhythm Heart sounds: S1 normal heart sound present and S2 normal heart sound present Extrem General: Yes full ROM Assessment and Plan Assessment & Plan (1) Hospital discharge follow-up: Code(s): Z09 - Encounter for follow-up examination after completed treatment for conditions other than malignant neoplasm Plan: Discharge date 05/19/2023 due to pneumonia and costochondritis. CT angiogram done at ER. Feels markedly improved. Afebrile. (2) Pneumonia: Code(s): J18.9 - Pneumonia, unspecified organism Qualifiers: Pneumonia type: due to unspecified organism Laterality: right Lung location: lower lobe of lung Qualified Code(s): J18.9 - Pneumonia, unspecified organism Plan: Continue Augmentin. Start Levaquin after Augmentin. Repeat chest x-ray after completing Levaquin. (3) Migraines: Code(s): G43.909 - Migraine, unspecified, not intractable, without status migrainosus Qualifiers: Migraine type: without aura Status migrainosus presence: without status migrainosus Intractability: not intractable Qualified Code(s): G43.009 - Migraine without aura, not intractable, without status migrainosus Plan: Continue ibuprofen as needed. (4) Pleural effusion: Code(s): J90 - Pleural effusion, not elsewhere classified Plan: Most likely due to pneumonia. Follow-up with pulmonology. (5) Costochondritis: Code(s): M94.0 - Chondrocostal junction syndrome [[place]] Plan: Continue ibuprofen as needed. Orders: Orders XR chest 2V 05/30/23 J18.9 - Pneumonia, unspecified organism Medications: New levofloxacin 750 mg PO DAILY 7 days 7 tabs 0RF Coding Level of Care Code TCM Mod MDM <= 14 Days Diagnoses Hospital discharge follow-up Z09 Pneumonia of right lower lobe due to infectious organism J18.9 Pneumonia type: due to unspecified organism Laterality: right Lung location: lower lobe of lung Migraine without aura and without status migrainosus, not intractable G43.009 Migraine type: without aura Status migrainosus presence: without status migrainosus Intractability: not intractable Pleural effusion J90 Costochondritis M94.0 Time Spent (min) 24
== END 2023-05-30 15:38 | disposition home or self-care (01) ==
PROVIDERS: PCP Internal Medicine; Visit Provider Internal Medicine
DX: J18.9 Pneumonia, unspecified organism (principal); G43.009 Migraine without aura, not intractable, without status migrainosus; M94.0 Chondrocostal junction syndrome [Tietze]
CPT/HCPCS: 99214

== ENCOUNTER 2023-07-19 15:18 | Outpatient (REF) | payer OTHER, SELFPAY ==
--- NOTE | ~2023-07-19 | XR_ITS ---
EXAMINATION: XR CHEST 2 VIEWS CLINICAL INFORMATION: Pneumonia. COMPARISON: Chest radiographs dated 05/28/2023. TECHNIQUE: Frontal and lateral views of the chest were obtained. FINDINGS: The heart, great vessels, pulmonary vasculature and mediastinum are normal. The lungs show no focal infiltrate, effusion or pneumothorax. There is no acute osseous abnormality. XR/XR chest 2V IMPRESSION: No active cardiopulmonary disease.
== END 2023-07-19 15:19 | disposition home or self-care (01) ==
LOC: HO.XRAY 15:18
PROVIDERS: PCP Internal Medicine; Visit Provider Hospitalist
DX: J90 Pleural effusion, not elsewhere classified (principal); J18.9 Pneumonia, unspecified organism; R91.1 Solitary pulmonary nodule
CPT/HCPCS: 71046; 99212

== ENCOUNTER 2023-07-19 15:18 | Outpatient (AMB) | payer OTHER, SELFPAY ==
--- NOTE | 2023-07-19 15:27 | A.OFFVIS_ITS ---
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 Initially she felt a nagging sensation on the right hemithorax. Worsened with breathing coughing. Although she took some ibuprofen was able to feel little better and she went back to work. Then the next day she noticed the pain was a little bit worse. Therefore, she was seen by her primary care doctor and provided some care. Ultimately her symptoms worsen to the point that she could not barely breathe then because the pleuritic intensity of the pain. [place] like a sharp stabbing pain primarily in the the right lateral area but also likely radiating to the shoulder area. At that point the patient could not tolerate the symptoms and longer decided to go to the ER. There she did undergo a CTA. I did personally reviewed the CT scan the patient. She does have a small right-sided pleural effusion suggesting some component of pleurisy. But in addition to that adjacent to the pleural effusion that appears to be an area of airspace disease which could be compressive atelectasis or pneumonia. The patient also states she has been coughing more she has also had some chills and has not been feeling well. Her blood work did also demonstrate a left shift with significant immature granulocytes suggesting infectious process. At this point based on the findings likely has a small non complicated parapneumonic effusion which is very pruritic in nature. Therefore will go ahead and start the patient on antibiotics. She can take Motrin for pain. If the patient is no better she can have a repeat x-ray to make sure that the fusion is not getting worse. Otherwise will repeat the x-ray need around. Also to note the patient does have a small subcentimeter pulmonary nodule. The nodules not concerning with the patient is concerned about it. She will need to have a repeat CT scan in a year's time to make sure that the nodular density does not evolve into anything. The patient was started the antibiotics if she has no better she will call the office otherwise will follow-up in 6-8 weeks. 07/19/2023 the patient is here for a pulmo nary follow-up visit. Overall the patient is feeling better. She did follow-up with her primary care doctor s ashley saw her. She had a repeat x-ray demonstrating still% persistent opacity in the right base. Therefore she received additional antibiotics. Now the pleuritic discomfort has improved. Denies any pleuritic chest discomfort. Denies any cough or chest congestion. She is back to her baseline. Will go ahead and repeat the chest x-ray now to make sure that is completely resolved. If however there some residual findings will request a CT scan of the chest to better address the abnormalities. [facility] Medical History (Updated 05/31/23 @ 08:04 by Diane Ferrell MD) Pneumonia Migraines Hearing loss, right Surgical History History of section History of tubal ligation Family History Father Hypertension Diabetes Heart disease Mother Hypertension Diabetes Asthma Maternal Grandfather Heart disease Maternal Aunt Cervical cancer Breast cancer Social History Housing: House Alcohol intake: current Alcohol intake frequency: holidays/special occasions only Patient Tobacco Use Status: Never used Tobacco e-Cigarette/Vaping Use: Never Used Second Hand Smoke Exposure: No service: No Current occupational status: employed Current occupational exposures/hazards: No Cognitive needs: No Hearing needs: No Vision needs: No Review of Systems Const Denies chills and Denies fever(s) Eyes Reports no additional complaints, Denies change in vision and Denies other visual disturbances ENT Denies otalgia Card Denies chest pain Resp Denies cough, Denies pain on inspiration, Denies pain with cough and Denies wheezing GI Denies abdominal pain, Denies change in bowel habits, Denies excessive flatus, Denies nausea and Denies vomiting Denies urinary incontinence, Denies urinary hesitancy and Denies urinary urgency Musc Denies abnormal gait, Denies atrophy, Denies deformity and Denies limited range of motion Skin/Breast Denies bleeding lesions, Denies changing lesions and Denies rash Neuro Denies abnormal gait, Denies behavioral changes and Denies lack of coordination Psych Denies behavioral changes Fredy/Lymph Denies lymphadenopathy Aller/Immun Denies wheezing Physical Exam Vital Signs: Last Vital Signs Pulse 69 07/19/23 15:29 Pulse Ox 100 07/19/23 15:29 Oxygen Delivery Method Room Air 07/19/23 15:29 BMI result Body Mass Index 23.5 Const General: comfortable HEENT Head: Yes normocephalic Neck Neck: Yes supple Chest Chest palpation & inspection: normal inspection of the chest Resp Effort & Inspection: normal respiratory effort Auscultation: diminished lung sounds Cardio Rate: tachycardic Rhythm: regular rhythm Heart sounds: S1 normal heart sound present and S2 normal heart sound present GI Palpation (GI): Soft to palpation Skin General skin exam: no rashes or lesions noted Extrem General: Yes no clubbing, cyanosis or edema Assessment & Plan Assessment & Plan (1) Pleural effusion: Code(s): J90 - Pleural effusion, not elsewhere classified (2) Pneumonia: Code(s): J18.9 - Pneumonia, unspecified organism Qualifiers: Laterality: right Lung location: lower lobe of lung Pneumonia type: due to unspecified organism Qualified Code(s): J18.9 - Pneumonia, unspecified organism (3) Pulmonary nodule: Code(s): R91.1 - Solitary pulmonary nodule Plan repeat CXR Consider CT chest if CXR is abnormal F/U 6 months or sooner if any worsening symptoms Orders: Orders XR chest 2V 07/19/23 J18.9 - Pneumonia, unspecified organism, J90 - Pleural effusion, not elsewhere classified Coding Level of Care Code Est Pt Level 4 (13275) Diagnoses Pleural effusion J90 Pneumonia of right lower lobe due to infectious organism J18.9 Laterality: right Lung location: lower lobe of lung Pneumonia type: due to unspecified organism Pulmonary nodule R91.1 Time Spent (min) 17
[2023-07-19 15:29] VITALS: PULSE 69; O2SAT 100; BMI 23.5
== END 2023-07-19 15:48 | disposition home or self-care (01) ==
PROVIDERS: PCP Internal Medicine; Visit Provider Hospitalist
DX: J90 Pleural effusion, not elsewhere classified (principal); J18.9 Pneumonia, unspecified organism; R91.1 Solitary pulmonary nodule
CPT/HCPCS: 99214

== ENCOUNTER 2023-12-13 14:29 | Outpatient (AMB) | payer OTHER, SELFPAY ==
--- NOTE | 2023-12-13 14:33 | MHC.PC.OV ---
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 Required: No Accompanied by: Self / Same As Patient Allergies No Known Allergies Allergy (Verified 12/13/23 14:57) Medication List - Last Reconciled 12/13/23 by Diane Ferrell MD No Known Home Meds Tobacco use date assessed: 05/17/23 Dental Screening Dental Screen Date: 12/13/23 Did you have a dental visit in the last 12 months?: Yes Did you have a dental problem in the last 6 months where you did not have access to dental care?: No Was dental information given to patient?: Patient has dentist HPI HPI Comments History of Present Illness Details This is a 38-year-old female that comes for her physical exam. Mammogram will be ordered. Last Pap smear was over 4 years ago. No chest pain or shortness on breath. [facility] Medical History (Updated 12/13/23 @ 15:39 by Diane Ferrell MD) Pneumonia Migraines Hearing loss, right Surgical History History of section History of tubal ligation Family History Father Hypertension Diabetes Heart disease Mother Hypertension Diabetes Asthma Maternal Grandfather Heart disease Maternal Aunt Cervical cancer Breast cancer Social History Housing: House Alcohol intake: current Alcohol intake frequency: holidays/special occasions only Patient Tobacco Use Status: Never used Tobacco e-Cigarette/Vaping Use: Never Used Second Hand Smoke Exposure: No service: No Current occupational status: employed Current occupational exposures/hazards: No Cognitive needs: No Hearing needs: No Vision needs: No Questionnaire PHQ-9 Over the last 2 weeks, how often have you been bothered by any of the following problems? 1. Little interest or pleasure in doing things: not at all 2. Feeling down, depressed, or hopeless: not at all 3. Trouble falling or staying asleep, or sleeping too much: not at all 4. Feeling tired or having little energy: not at all 5. Poor appetite or overeating: not at all 6. Feeling bad about yourself - or that you are a failure or have let yourself or your family down: not at all 7. Trouble concentrating on things, such as reading the newspaper or watching television: not at all 8. Moving or speaking so slowly that other people could have noticed. Or the opposite - being so fidgety or restless that you have been moving around a lot more than usual: not at all 9. Thoughts that you would be better off or of hurting yourself in some way: not at all Total score: 0 Depression Screening Interpretation: Negative Depression Screening Done: Yes 78569 - PHQ-9 Billing: Yes Source: Developed by Drs. Albin Jimenez, Milena Hunter, Justin Terry and colleagues, with an educational loida from [employer]. Thrive Questionnaire Date Thrive assessed: 12/13/23 I am a: Patient What is your living situation today?: I have a steady place to live Within the past 12 months, did the food you bought not last and you didn't have the money to get more?: Never true Within the past 12 months, did you worry whether your food would run out before you got money to buy more?: Never true Do you have trouble paying for medicines?: No Do you have trouble getting transportation to medical appointments?: No Do you have trouble paying your heating and electricity bill?: No Do you have trouble taking care of your child, family member or friend?: No Do you have trouble with day-to-day activities such as bathing, preparing meals, shopping, managing finances, etc.?: No Are you currently unemployed and looking for a job?: No Are you interested in more education?: Yes Please select the resources that you would like help with: None Currently or been in a relationship where the following occur: No concerns reported THRIVE Score: 0 AUDIT C Alcohol Use Questionnaire (AUDIT-C) 1. How often do you have a drink containing alcohol?: Never Total Score: 0 Score Reviewed/Action Taken: No SONYA-7 AMB Questionnaire SONYA-7 Date SONYA - 7 assessed: 12/13/23 Feeling nervous, anxious, or on edge: 0 = Not at all Not being able to stop or control worryin = Not at all Worrying too much about different things: 0 = Not at all Trouble relaxin = Not at all Being so restless that it is hard to sit still: 0 = Not at all Becoming easily annoyed or irritable: 0 = Not at all Feeling afraid as if something awful might happen: 0 = Not at all Total SONYA-7 score (0-4 normal; 5-9 mild; 10-14 moderate; 15-21 severe): 0 Source: Developed by Drs. Albin Jimenez, Milena Hunter, Justin Terry and colleagues, with an educational loida from [employer]. SONYA-7 Assessment Billing SONYA-7 Assessment Tool: SONYA-7 Assessment 49774 Review of Systems Const All systems reviewed & are unremarkable except as noted in HPI and below Card Denies chest pain at rest, Denies chest pain with activity, Denies edema, Denies irregular heart rhythm, Denies claudication, Denies dyspnea, Denies dyspnea on exertion, Denies orthopnea, Denies paroxysmal nocturnal dyspnea and Denies slow heart rate Resp Denies cough, Denies dyspnea and Denies dyspnea on exertion GI Denies abdominal pain, Denies change in bowel habits, Denies excessive flatus, Denies nausea and Denies vomiting Denies urinary incontinence, Denies urinary hesitancy and Denies urinary urgency Physical exam (Primary Care) Vital Signs: Last Vital Signs BP 126/80 12/13/23 14:34 BMI result Body Mass Index 26.9 Tobacco/Smoking Status: Tobacco use Status Tobacco use date assessed 05/17/23 12/13/23 14:38 Patient Tobacco Use Status Never used Tobacco 12/13/23 14:38 e-Cigarette/Vaping Use Never Used 12/13/23 14:38 PHQ-9: PHQ-9 Score PHQ-9: Total score 0 12/13/23 15:01 Depression Screening Interpretation: Negative Thrive Assessment: Date of Thrive Assessment Date Thrive assessed 12/13/23 12/13/23 14:38 Currently or been in a relationship where the following occur: No concerns reported [facility] Head: Yes normal to inspection, Yes normocephalic and Yes atraumatic Ears: external ears normal Eyes General: appearance normal, both eyes and all related structures Eyelids: Yes eyelids normal Conjunctivae: conjunctivae normal Neck Neck: Yes normal visual inspection and Yes supple Resp Effort & Inspection: normal respiratory effort Auscultation: clear to auscultation bilaterally Cardio Jugular venous distension: no JVD Rate: regular rate Rhythm: regular rhythm Heart sounds: S1 normal heart sound present and S2 normal heart sound present GI Inspection: Yes normal to inspection Palpation (GI): Soft to palpation and nontender Auscultation: normal bowel sounds Skin General skin exam: no rashes or lesions noted Neuro General: no focal motor deficits Extrem General: Yes full ROM Psych Appearance: grossly normal Assessment and Plan Assessment & Plan (1) Physical exam: Code(s): Z00.00 - Encounter for general adult medical examination without abnormal findings Plan: Repeat in a year. Orders: Orders MM screening mammo BI Today Z12.31 - Encounter for screening mammogram for malignant neoplasm of breast Comprehensive [place]. Panel Fast Today Z00.00 - Encounter for general adult medical examination without abnormal findings Lipid Panel Today Z00.00 - Encounter for general adult medical examination without abnormal findings Referrals [facility] Referral Z12.4 - Encounter for screening for malignant neoplasm of cervix Coding Level of Care Code Est Pt Prev Care 40-64y(05137) Diagnoses Physical exam Z00.00 Additional Codes SONYA-7 Assessment Billing - SONYA-7 Assessment Tool: SONYA-7 Assessment [id number] ([id number]) Time Spent (min) 30
[2023-12-13 14:34] VITALS: BP 126/80; BMI 26.9
== END 2023-12-13 15:09 | disposition home or self-care (01) ==
PROVIDERS: PCP Internal Medicine; Visit Provider Internal Medicine
DX: Z00.00 Encounter for general adult medical examination without abnormal findings (principal)
CPT/HCPCS: 99396

== ENCOUNTER 2024-01-04 12:59 | Outpatient (REF) | payer OTHER, SELFPAY ==
--- NOTE | ~2024-01-04 | MM_ITS ---
EXAMINATION: MM SCREENING DIGITAL BREAST TOMOSYNTHESIS, BILATERAL CLINICAL INFORMATION: Screening. Asymptomatic. COMPARISON: Mammography: Baseline. TECHNIQUE: Digital breast mammography with tomosynthesis is performed in both the craniocaudal and mediolateral oblique views along with computer-aided detection (CAD). FINDINGS: The breasts are heterogeneously dense, which may obscure small masses (ACR BI-RADS breast composition Category c). There are no significant masses, abnormal calcifications, or other abnormalities. MM/MM tomosynthesis screening BI IMPRESSION: No mammographic evidence of malignancy. ASSESSMENT: BI-RADS BI-RADS 1 - Negative RECOMMENDATION: Routine annual mammography screening. 1 year F/U This examination should not preclude the clinical evaluation of a suspicious palpable abnormality. This patient's information was entered into a reminder system with a target due date for their next mammogram. Electronically signed by: Sara Garcia DO 01/16/2024 03:40 PM EDT
== END 2024-01-04 13:00 | disposition home or self-care (01) ==
LOC: HO.MAMMO 12:59
PROVIDERS: PCP Internal Medicine; Visit Provider Internal Medicine
DX: Z12.31 Encounter for screening mammogram for malignant neoplasm of breast (principal)
CPT/HCPCS: 77063; 77067

== ENCOUNTER → 2024-01-04 13:15 | Outpatient (BNV) | payer OTHER, SELFPAY | PROVIDERS: PCP Internal Medicine; Visit Provider Internal Medicine | DX: Z12.31 Encounter for screening mammogram for malignant neoplasm of breast (principal) | CPT/HCPCS: 77063; 77067 ==

== ENCOUNTER 2024-01-22 15:11 | Outpatient (AMB) | payer OTHER, SELFPAY ==
--- NOTE | 2024-01-22 15:13 | A.OFFVIS_ITS ---
Vital Signs 01/22/24 15:15 Height 5 ft 7 in Weight 173 lb 1.006 oz BMI 27.1 BP 114/62 Blood Pressure Location Rt brachial Position Sitting Pulse 88 Pulse Source Doppler Pulse Oximetry (%) 97 Oxygen Delivery Method Room Air Intake Visit Reasons: Pleural Effusion Allergies No Known Allergies Allergy (Verified 12/13/23 14:57) HPI Comments Details: The patient is a 38 year woman who is healthy apparently she was in usual state health until last week when she started developing pleuritic chest pain on the right side. Initially she felt a nagging sensation on the right hemithorax. Worsened with breathing coughing. Although she took some ibuprofen was able to feel little better and she went back to work. Then the next day she noticed the pain was a little bit worse. Therefore, she was seen by her primary care doctor and provided some care. Ultimately her symptoms worsen to the point that she could not barely breathe then because the pleuritic intensity of the pain. [place] like a sharp stabbing pain primarily in the the right lateral area but also likely radiating to the shoulder area. At that point the patient could not tolerate the symptoms and longer decided to go to the ER. There she did undergo a CTA. I did personally reviewed the CT scan the patient. She does have a small right-sided pleural effusion suggesting some component of pleurisy. But in addition to that adjacent to the pleural effusion that appears to be an area of airspace disease which could be compressive atelectasis or pneumonia. The patient also states she has been coughing more she has also had some chills and has not been feeling well. Her blood work did also demonstrate a left shift with significant immature granulocytes suggesting infectious process. At this point based on the findings likely has a small non complicated parapneumonic effusion which is very pruritic in nature. Therefore will go ahead and start the patient on antibiotics. She can take Motrin for pain. If the patient is no better she can have a repeat x-ray to make sure that the fusion is not getting worse. Otherwise will repeat the x-ray need around. Also to note the patient does have a small subcentimeter pulmonary nodule. The nodules not concerning with the patient is concerned about it. She will need to have a repeat CT scan in a year's time to make sure that the nodular density does not evolve into anything. The patient was started the antibiotics if she has no better she will call the office otherwise will follow-up in 6-8 weeks. 07/19/2023 the patient is here for a pulmonary follow-up visit. Overall the patient is feeling better. She did follow-up with her primary care doctor started saw her. She had a repeat x-ray demonstrating still% persistent opacity in the right base. Therefore she received additional antibiotics. Now the pleuritic discomfort has improved. Denies any pleuritic chest discomfort. Bet[place] es any cough or chest congestion. She is back to her baseline. Will go ahead and repeat the chest x-ray now to make sure that is completely resolved. If however there some residual findings will request a CT scan of the chest to better address the abnormalities. 01/22/2024 the patient is here for a pulmonary follow-up visit. Overall the patient has been doing well. She has had episodes however of chest discomfort. Primarily in the costochondral area. Could be related to costochondritis. At this point the symptoms are better. We did review her last CT scan that she had back in 06/05/2023 which she did have the pleural effusion on the right as well as airspace disease suggesting Pneumonia. The x-ray during that time did not show any details specially because the pleural effusion was so deep in the sulcus. Her most recent chest x-ray does that demonstrate any abnormalities although very limited. Patient also has a pulmonary nodule noted in the right hemithorax. Based on the fact the patient continues to have some discomfort and abnormal CT scan with pulmonary nodule will go ahead and plan to repeat the CT scan to follow-up the pulmonary nodules sometime in 06/05/2023. In the meantime chest discomfort is better. If she does develop says pain she will come in for chest x-ray and blood work and she will call me. Will further evaluate for potential inflammatory conditions. [facility] Medical History Pneumonia Migraines Hearing loss, right Surgical History History of section History of tubal ligation Family History Father Hypertension Diabetes Heart disease Mother Hypertension Diabetes Asthma Maternal Grandfather Heart disease Maternal Aunt Cervical cancer Breast cancer Social History Housing: House Alcohol intake: current Alcohol intake frequency: holidays/special occasions only Patient Tobacco Use Status: Never used Tobacco e-Cigarette/Vaping Use: Never Used Second Hand Smoke Exposure: No service: No Current occupational status: employed Current occupational exposures/hazards: No Cognitive needs: No Hearing needs: No Vision needs: No Review of Systems Const Denies chills and Denies fever(s) Eyes Reports no additional complaints, Denies change in vision and Denies other visual disturbances ENT Denies otalgia Card Reports chest pain Resp Denies cough, Reports pain on inspiration, Reports pain with cough and Denies wheezing GI Denies abdominal pain, Denies change in bowel habits, Denies excessive flatus, Denies nausea and Denies vomiting Denies urinary incontinence, Denies urinary hesitancy and Denies urinary urgency Musc Denies abnormal gait, Denies atrophy, Denies deformity and Denies limited range of motion Skin/Breast Denies bleeding lesions, Denies changing lesions and Denies rash Neuro Denies abnormal gait, Denies behavioral changes and Denies lack of coordination Psych Denies behavioral changes Fredy/Lymph Denies lymphadenopathy Aller/Immun Denies wheezing Physical Exam Vital Signs: Last Vital Signs Pulse 88 01/22/24 15:15 BP 114/62 01/22/24 15:15 Pulse Ox 97 01/22/24 15:15 Oxygen Delivery Method Room Air 01/22/24 15:15 BMI result Body Mass Index 27.1 Const General: comfortable HEENT Head: Yes normocephalic Neck Neck: Yes supple Chest Chest palpation & inspection: normal inspection of the chest and no tenderness Resp Effort & Inspection: normal respiratory effort Auscultation: diminished lung sounds Cardio Rate: tachycardic Rhythm: regular rhythm Heart sounds: S1 normal heart sound present and S2 normal heart sound present GI Palpation (GI): Soft to palpation Skin General skin exam: no rashes or lesions noted Extrem General: Yes no clubbing, cyanosis or edema Assessment & Plan Assessment & Plan (1) Pleural effusion: Code(s): J90 - Pleural effusion, not elsewhere classified Category: Medical (2) Pneumonia: Code(s): J18.9 - Pneumonia, unspecified organism Category: Medical Qualifiers: Laterality: right Lung location: lower lobe of lung Pneumonia type: due to unspecified organism Qualified Code(s): J18.9 - Pneumonia, unspecified organism (3) Pulmonary nodule: Code(s): R91.1 - Solitary pulmonary nodule Category: Medical (4) Chest pain: Code(s): R07.9 - Chest pain, unspecified Category: Medical Qualifiers: Chest pain type: precordial pain Qualified Code(s): R07.2 - Precordial pain Plan repeat CXR if worsening cest pain Bloodwork if recurrent chest pain repeat CT chest 05/2024 F/U 06/2024 Orders: Orders XR chest 2V Today J90 - Pleural effusion, not elsewhere classified Cell Count w Diff Pleural Fld Today J90 - Pleural effusion, not elsewhere classified Erythrocyte Sedimentation Rate Today J90 - Pleural effusion, not elsewhere classified Cyclic Citrullinated Peptide Today J90 - Pleural effusion, not elsewhere classified ERINN Reflex Titer and Pattern Today J90 - Pleural effusion, not elsewhere classified CT chest wo IV con 05/19/24 J90 - Pleural effusion, not elsewhere classified, R07.9 - Chest pain, unspecified, R91.1 - Solitary pulmonary nodule Coding Level of Care Code Est Pt Level 4 (71747) Diagnoses Pleural effusion J90 Pneumonia of right lower lobe due to infectious organism J18.9 Laterality: right Lung location: lower lobe of lung Pneumonia type: due to unspecified organism Pulmonary nodule R91.1 Precordial pain R07.2 Chest pain type: precordial pain Time Spent (min) 17
[2024-01-22 15:15] VITALS: BP 114/62; PULSE 88; O2SAT 97; BMI 27.1
== END 2024-01-22 15:30 | disposition home or self-care (01) ==
PROVIDERS: PCP Internal Medicine; Visit Provider Hospitalist
DX: J90 Pleural effusion, not elsewhere classified (principal); J18.9 Pneumonia, unspecified organism; R91.1 Solitary pulmonary nodule; R07.2 Precordial pain
CPT/HCPCS: 99214

== ENCOUNTER → 2024-01-22 15:11 | Outpatient (BNVA) | payer OTHER, SELFPAY | PROVIDERS: PCP Internal Medicine; Visit Provider Hospitalist | DX: J90 Pleural effusion, not elsewhere classified (principal); J18.9 Pneumonia, unspecified organism; R91.1 Solitary pulmonary nodule; R07.2 Precordial pain | CPT/HCPCS: 99212 ==

== ENCOUNTER → 2024-05-19 14:57 | Outpatient (BNV) | payer OTHER, SELFPAY | PROVIDERS: PCP Internal Medicine; Visit Provider Radiology Diagnostic Radiology | DX: R91.1 Solitary pulmonary nodule (principal); J98.11 Atelectasis | CPT/HCPCS: 71250 ==

== ENCOUNTER 2024-06-09 14:53 | Outpatient (AMB) | payer OTHER, SELFPAY ==
--- NOTE | 2024-06-09 15:10 | A.OFFVIS_ITS ---
Vital Signs 06/09/24 15:15 Height 5 ft 7 in Weight 169 lb 12.095 oz BMI 26.6 BP 110/78 Blood Pressure Location Rt brachial Position Sitting Pulse 86 Pulse Source Pulse Oximeter Pulse Oximetry (%) 97 Oxygen Delivery Method Room Air Intake Visit Reasons: Pleural Effusion Allergies No Known Allergies Allergy (Verified 06/09/24 15:17) HPI Comments Details: The patient is a 38 year woman who is healthy apparently she was in usual state health until last week when she started developing pleuritic chest pain on the right side. Initially she felt a nagging sensation on the right hemithorax. Worsened with breathing coughing. Although she took some ibuprofen was able to feel little better and she went back to work. Then the next day she noticed the pain was a little bit worse. Therefore, she was seen by her primary care doctor and provided some care. Ultimately her symptoms worsen to the point that she could not barely breathe then because the pleuritic intensity of the pain. Lindsay like a sharp stabbing pain primarily in the the right lateral area but also likely radiating to the shoulder area. At that point the patient could not tolerate the symptoms and longer decided to go to the ER. There she did undergo a CTA. I did personally reviewed the CT scan the patient. She does have a small right-sided pleural effusion suggesting some component of pleurisy. But in addition to that adjacent to the pleural effusion that appears to be an area of airspace disease which could be compressive atelectasis or pneumonia. The patient also states she has been coughing more she has also had some chills and has not been feeling well. Her blood work did also demonstrate a left shift with significant immature granulocytes suggesting infectious process. At this point based on the findings likely has a small non complicated parapneumonic effusion which is very pruritic in nature. Therefore will go ahead and start the patient on antibiotics. She can take Motrin for pain. If the patient is no better she can have a repeat x-ray to make sure that the fusion is not getting worse. Otherwise will repeat the x-ray need around. Also to note the patient does have a small subcentimeter pulmonary nodule. The nodules not concerning with the patient is concerned about it. She will need to have a repeat CT scan in a year's time to make sure that the nodular density does not evolve into anything. The patient was started the antibiotics if she has no better she will call the office otherwise will follow-up in 6-8 weeks. 07/19/2023 the patient is here for a pulmonary follow-up visit. Overall the patient is feeling better. She did follow-up with her primary care doctor started saw her. She had a repeat x-ray demonstrating still% persistent opacity in the right base. Therefore she received additional antibiotics. Now the pleuritic discomfort has improved. Denies any pleuritic chest discomfort. Denies any cough or chest congestion. She is back to her baseline. Will go ahead and repeat the chest x-ray now to make sure that is completely resolved. If however there some residual findings will request a CT scan of the chest to better address the abnormalities. 01/22/2024 the patient is here for a pulmonary follow-up visit. Overall the patient has been doing well. She has had episodes however of chest discomfort. Primarily in the costochondral area. Could be related to costochondritis. At this point the symptoms are better. We did review her last CT scan that she had back in 06/05/2023 which she did have the pleural effusion on the right as well as airspace disease suggesting Pneumonia. The x-ray during that time did not show any details specially because the pleural effusion was so deep in the sulcus. Her most recent chest x-ray does that demonstrate any abnormalities although very limited. Patient also has a pulmonary nodule noted in the right hemithorax. Based on the fact the patient continues to have some discomfort and abnormal CT scan with pulmonary nodule will go ahead and plan to repeat the CT scan to follow-up the pulmonary nodules sometime in 06/05/2023. In the meantime chest discomfort is better. If she does develop says pain she will come in for chest x-ray and blood work and she will call me. Will further evaluate for potential inflammatory conditions. 06/09/2024 the patient is here for a pulmonary follow-up visit. Overall she is doing okay. She does complaint of some shortness of breath with activity specially going up flight of stairs. The patient has a moderate degree of severity. She does not use any inhalers was now. Her pleuritic chest pain has subsided. She did have a repeat CT scan to follow-up with the pulmonary nodules in her pneumonic process. I did compare her CT scan from 06/05/[address] scan from 2023. It appears that she does have some scarring left over in the right lower lobe with an area of 7 mm which appears to be little spiculated. I did reassure her that I am not concerned I think he should scarring but because of the nature of the spiculation in the 7 mm density which should follow-up with a CT scan in 6 months instead of a year. Her other nodules are stable. We did also go for a walking oximetry and speaks patient became dyspneic going up a flight of stairs with a dyspnea score of 7/10. Heart rate did go up to about 130. Likely could be a component of deconditioning although will check a hemoglobin to make sure she is not anemic. Her pulse ox was 99% which is reassuring. [facility] Medical History (Updated 06/09/24 @ 18:01 by Handy Johnson MD) Pulmonary nodules Dyspnea Chest pain Pneumonia Migraines Hearing loss, right Surgical History History of section History of tubal ligation Family History Father Hypertension Diabetes Heart disease Mother Hypertension Diabetes Asthma Maternal Grandfather Heart disease Maternal Aunt Cervical cancer Breast cancer Social History Housing: House Alcohol intake: current Alcohol intake frequency: holidays/special occasions only Patient Tobacco Use Status: Never used Tobacco e-Cigarette/Vaping Use: Never Used Second Hand Smoke Exposure: No service: No Current occupational status: employed Current occupational exposures/hazards: No Cognitive needs: No Hearing needs: No Vision needs: No Review of Systems Const Denies chills and Denies fever(s) Eyes Reports no additional complaints, Denies change in vision and Denies other visual disturbances ENT Denies otalgia Card Denies chest pain and Reports dyspnea on exertion Resp Denies cough, Denies pain on inspiration, Denies pain with cough, Reports dyspnea on exertion and Denies wheezing GI Denies abdominal pain, Denies change in bowel habits, Denies excessive flatus, Denies nausea and Denies vomiting Denies urinary incontinence, Denies urinary hesitancy and Denies urinary urgency Musc Denies abnormal gait, Denies atrophy, Denies deformity and Denies limited range of motion Skin/Breast Denies bleeding lesions, Denies changing lesions and Denies rash Neuro Denies abnormal gait, Denies behavioral changes and Denies lack of coordination Psych Denies behavioral changes Fredy/Lymph Denies lymphadenopathy Aller/Immun Denies wheezing Physical Exam Vital Signs: Last Vital Signs Pulse 86 06/09/24 15:15 BP 110/78 06/09/24 15:15 Pulse Ox 97 06/09/24 15:15 Oxygen Delivery Method Room Air 06/09/24 15:15 BMI result Body Mass Index 26.6 Const General: comfortable HEENT Head: Yes normocephalic Neck Neck: Yes supple Chest Chest palpation & inspection: normal inspection of the chest and no tenderness Resp Effort & Inspection: normal respiratory effort Auscultation: diminished lung sounds Cardio Rate: tachycardic Rhythm: regular rhythm Heart sounds: S1 normal heart sound present and S2 normal heart sound present GI Palpation (GI): Soft to palpation Skin General skin exam: no rashes or lesions noted Extrem General: Yes no clubbing, cyanosis or edema Assessment & Plan Assessment & Plan (1) Pulmonary nodule: Code(s): R91.1 - Solitary pulmonary nodule Category: Medical (2) Pleural effusion: Comment: resolved Code(s): J90 - Pleural effusion, not elsewhere classified Category: Medical (3) Pneumonia: Comment: resolved Code(s): J18.9 - Pneumonia, unspecified organism Category: Medical Qualifiers: Laterality: right Lung location: lower lobe of lung Pneumonia type: due to unspecified organism Qualified Code(s): J18.9 - Pneumonia, unspecified organism (4) Chest pain: Code(s): R07.9 - Chest pain, unspecified Category: Medical Qualifiers: Chest pain type: precordial pain Qualified Code(s): R07.2 - Precordial pain (5) Dyspnea: Code(s): R06.00 - Dyspnea, unspecified Category: Medical Qualifiers: Dyspnea type: dyspnea on exertion Qualified Code(s): R06.09 - Other forms of dyspnea (6) Pulmonary nodules: Code(s): R91.8 - Other nonspecific abnormal finding of lung field Category: Medical Plan repeat CT chest in 6 months Bloodwork Increase exercise activity if bloodwork stable F/U 6 months Orders: Orders Complete Blood Count Auto Diff Today R06.00 - Dyspnea, unspecified Basic Metabolic Panel Today R06.00 - Dyspnea, unspecified CT chest wo IV con 6 Months R91.8 - Other nonspecific abnormal finding of lung field Coding Level of Care Code Est Pt Level 4 (36364) Diagnoses Pulmonary nodule R91.1 Pleural effusion J90 Pneumonia of right lower lobe due to infectious organism J18.9 Laterality: right Lung location: lower lobe of lung Pneumonia type: due to unspecified organism Precordial pain R07.2 Chest pain type: precordial pain Dyspnea on exertion R06.09 Dyspnea type: dyspnea on exertion Pulmonary nodules R91.8 Time Spent (min) 17
[2024-06-09 15:15] VITALS: BP 110/78; PULSE 86; O2SAT 97; BMI 26.6
== END 2024-06-09 15:54 | disposition home or self-care (01) ==
PROVIDERS: PCP Internal Medicine; Visit Provider Hospitalist
DX: R91.1 Solitary pulmonary nodule (principal); J90 Pleural effusion, not elsewhere classified; J18.9 Pneumonia, unspecified organism; R07.2 Precordial pain; R06.09 Other forms of dyspnea; R91.8 Other nonspecific abnormal finding of lung field
CPT/HCPCS: 99214

== ENCOUNTER → 2024-06-09 14:53 | Outpatient (BNVA) | payer OTHER, SELFPAY | PROVIDERS: PCP Internal Medicine; Visit Provider Hospitalist | DX: J90 Pleural effusion, not elsewhere classified (principal); J18.9 Pneumonia, unspecified organism; R06.09 Other forms of dyspnea; R07.2 Precordial pain; R91.8 Other nonspecific abnormal finding of lung field | CPT/HCPCS: 99212 ==

== ENCOUNTER 2025-01-08 14:46 | Emergency (ER) | payer SELFPAY ==
--- NOTE | ~2025-01-08 | XR_ITS ---
EXAMINATION: XR ANKLE 3 OR MORE VIEWS RIGHT, XR FOOT 3 OR MORE VIEWS RIGHT HISTORY: pain COMPARISON: There are no prior studies available for comparison. FINDINGS: Six views of the right foot and ankle are submitted. Osseous mineralization is normal. There is no fracture or dislocation. The joint spaces are preserved. The soft tissues are unremarkable. XR/XR ankle RT min 3V IMPRESSION: Unremarkable examination of the right foot and ankle. Electronically signed by: Albin Bell MD 01/08/2025 03:28 PM EDT
--- NOTE | ~2025-01-08 | XR_ITS ---
EXAMINATION: XR ANKLE 3 OR MORE VIEWS RIGHT, XR FOOT 3 OR MORE VIEWS RIGHT HISTORY: pain COMPARISON: There are no prior studies available for comparison. FINDINGS: Six views of the right foot and ankle are submitted. Osseous mineralization is normal. There is no fracture or dislocation. The joint spaces are preserved. The soft tissues are unremarkable. XR/XR foot RT min 3V IMPRESSION: Unremarkable examination of the right foot and ankle. Electronically signed by: Albin Bell MD 01/08/2025 03:28 PM EDT
[2025-01-08 15:00] VITALS: BP 132/80; PULSE 85; RESP 16; TEMP 37; O2SAT 99; BMI 26.3
[2025-01-08 19:17] VITALS: BP 132/80; PULSE 85; RESP 16; TEMP 37; O2SAT 99
--- NOTE | 2025-01-12 13:21 | ED_ITS ---
HPI - Extremity Injury (Lower) General Chief Complaint: Extremity Injury, Lower Stated Complaint: Fall - foot injury Time Seen by Provider: 01/08/25 16:41 Source: patient and RN notes reviewed Mode of arrival: ambulatory Limitations: no limitations History of Present Illness ED Provider: Dania Murillo PA-C HPI Narrative: This is a 39 y/o F, with a hx of migraines, who presents to the ER with complaints of right foot/right fifth toe pain s/p trip and fall this morning. Pt states that she was walking in her driveway this morning and tripped and fell onto her right foot. She reports pain in her right ankle as well as right fifth toe. No hx of prior injuries in the past. She is able to weight bear without difficulty. No head strike/LOC. She is not on anticoagulation. No other complaints or concerns at this time. MD complaint: ankle injury and foot injury Place: home Severity: moderate Relieving factors: immobilization Exacerbating factors: weight bearing, movement and palpation Context: fall Other symptoms: none Related Data Previous Rx's ?Medication ?Instructions ?Recorded cetirizine 10 mg tablet (All Day 10 mg PO DAILY PRN al lergy 04/21/24 Allergy (cetirizine)) symptoms 90 days #90 tabs hydrocortisone 1 % topical cream 1 appl topical TID AK N hemorroids 05/24/24 (Cortisone (hydrocortisone)) 2 weeks #28.4 grams Allergies Allergy/AdvReac Type Severity Reaction Status Date / Time No Known Allergies Allergy Verified 01/08/25 15:05 Review of Systems Review of Systems: Constitutional : No Fever, No Chills ENT/Mouth : No sore throat, No Rhinorrhea Eyes: No Eye Pain, No Swelling, No Redness Cardiovascular : No Chest Pain, No SOB Respiratory : No Cough, No Sputum Gastrointestinal : No Nausea, No Vomiting, No Diarrhea, No abdominal Pain Genitourinary : No Dysuria, No Hematuria Musculoskeletal : No joint pain, No Myalgias, No Joint Swelling Skin : No Skin Lesions Neuro : No Weakness, No Numbness, No Headache All other systems reviewed and are negative Yes all other systems are reviewed and are negative Constitutional: Constitutional: Reports as per [facility] Past Medical History Medical History (Updated 01/09/25 @ 00:00 by Background Daemon) Pulmonary nodules Dyspnea Chest pain Pneumonia Migraines Hearing loss, right Surgical History History of section History of tubal ligation Family History Family History Father Hypertension Diabetes Heart disease Mother Hypertension Diabetes Asthma Maternal Grandfather Heart disease Maternal Aunt Cervical cancer Breast cancer Social History Social History Housing: House Alcohol intake: current Alcohol intake frequency: holidays/special occasions only Patient Tobacco Use Status: Never used Tobacco e-Cigarette/Vaping Use: Never Used Second Hand Smoke Exposure: No Advance Directives: No Advance Directives Information Provided: No service: No Current occupational status: employed Current occupational exposures/hazards: No Cognitive needs: No Hearing needs: No Vision needs: No Physical Exam Exam: Exam: General: Awake, alert, and oriented X3. No acute distress. HEENT: Normal inspection CVS: Normal heart rate and rhythm. Pulses normal. Respiratory: No respiratory distress Skin: Warm, dry, no rashes noted to exposed skin. Normal skin color. Normal skin turgor. Extremities: Right ankle with no obvious deformity or swelling, mild TTP overlying the right lateral mallelous. No open wounds or lacerations. Strong DP pulse. Slight ecchymosis seen overlying the fifth distal phalange with TTP in this region. Capillary refill less than 2 seconds. Ambulatory with steady gait. Strong DP/PT pulses Neuro: Oriented X 3. No motor deficit. No sensory deficit. Vital Signs: Vital Signs: Last Vital Signs Temp 98.6 F 01/08/25 19:17 Pulse 85 01/08/25 19:17 Resp 16 01/08/25 19:17 BP 132/80 01/08/25 19:17 Pulse Ox 99 01/08/25 19:17 O2 Del Method Room Air 01/08/25 19:17 BMI result Body Mass Index 26.3 Medical Decision Making Medical Decision Making MDM Narrative: 39 y/o F who presents to the ER with complaints of right ankle/5th toe pain after mechanical fall which occurred at home. On arrival, pt is ambulatory with steady gait. Ecchymosis seen on right fifth toe with TTP, mild TTP overlying the right lateral mallelous. Strong DP/PT pulses. No open wounds. Achilles intact. DDx including fracture, contusion, dislocation, sprain, strain. Xrays were obtained of the foot and ankle revealing no acute bony abnormalities. I reviewed the xray report and agree with the radiologist. At this time, will treat as a contusion. Advised to R.I.C.E areas of discomfort, take NSAIDs/tylenol. Offerred crutches, however patient declines. Given return precautions. She understands and agrees with plan. Pt stable for d.c. Differential Diagnosis Differential Diagnoses: The differential diagnosis associated with the presentation includes See above Radiology Impression Discussion of test interpretation with radiology: I have reviewed the radiologist's reading. Radiologist Impression: EXAMINATION: XR ANKLE 3 OR MORE VIEWS RIGHT, XR FOOT 3 OR MORE VIEWS RIGHT HISTORY: pain COMPARISON: There are no prior studies available for comparison. FINDINGS: Six views of the right foot and ankle are submitted. Osseous mineralization is normal. There is no fracture or dislocation. The joint spaces are preserved. The soft tissues are unremarkable. XR/XR ankle RT min 3V IMPRESSION: Unremarkable examination of the right foot and ankle. Electronically signed by: Albin Bell MD 01/08/2025 03:28 PM EDT RP Dictated By: Albin Bell MD Discharge Plan Discharge Clinical Impression: Contusion of foot, Pain in toe Patient Disposition: Home, Self-Care Instructions: Foot Contusion (ED) Additional Instructions: You were seen in the emergency department and had x-rays performed, no fracture seen. Take ibuprofen as needed for pain and symptoms. Rest, ice, and elevate your foot. If any new or worsening symptoms occur including but not into worsening pain, please seek emergent care. Prescriptions: No Action cetirizine [All Day Allergy (cetirizine)] 10 mg tablet 10 mg PO DAILY PRN (Reason: allergy symptoms) 90 Days Qty: 90 0RF hydrocortisone [Cortisone (hydrocortisone)] 1 % cream 1 appl topical TID PRN (Reason: hemorroids) 14 Days Qty: 28.4 0RF Interventions: ED Discharge Assessment Last Done: 01/08/25 19:17 Discharge Date/Time: 01/08/25 19:17 Print Language: Syriac
== END 2025-01-08 19:17 | disposition home or self-care (01) ==
PROVIDERS: Emergency Provider Emergency Medicine; PCP Internal Medicine
DX: S90.31XA Contusion of right foot, initial encounter (principal); S90.121A Contusion of right lesser toe(s) without damage to nail, initial encounter; M25.571 Pain in right ankle and joints of right foot; X50.9XXA Other and unspecified overexertion or strenuous movements or postures, initial encounter; Y93.9 Activity, unspecified; Y92.9 Unspecified place or not applicable; Y99.8 Other external cause status
CPT/HCPCS: 73610; 73630; 99282; 99283

== ENCOUNTER → 2025-01-08 15:09 | Outpatient (BNV) | payer OTHER, SELFPAY | PROVIDERS: PCP Internal Medicine; Visit Provider Radiology Diagnostic Radiology | DX: M25.571 Pain in right ankle and joints of right foot (principal); M79.671 Pain in right foot | CPT/HCPCS: 73610; 73630 ==